=== PATIENT | male | born 1995 | race Caucasian/White ===

== ENCOUNTER 2016-04-26 09:22 | Emergency (ER) | payer SELFPAY | END 2016-04-26 11:12 | disposition home or self-care (01) | LOC: D.ER 09:22 | DX: K02.9 Dental caries, unspecified (principal); F17.200 Nicotine dependence, unspecified, uncomplicated ==

== ENCOUNTER 2016-06-12 15:41 | Emergency (ER) | payer MEDICAID ==
[2016-06-12 17:01] LABS: BASOPHILS 0.2 % (0.0-2.0); EOSINOPHILS 0.8 % (0-7); HEMATOCRIT 45.8 % (42.0-54.0); HEMOGLOBIN 15.5 g/dL (13.5-17.5); IMMATURE GRANULOCYTES 0.3 % (0-5); LYMPHOCYTES 13.2 % (15-50); MCHC 33.8 g/dL (31.0-37.0); MCV 88.6 fL (80.0-100.0); MEAN PLATELET VOLUME 10.9 fL (7.4-10.4); MONOCYTES 8.7 % (2-11); NEUTROPHILS 76.8 % (40-80); PLATELET COUNT 209 10x3/uL (130-400); RBC 5.17 10x6/uL (4.20-6.10); RDW 12.8 % (11.5-14.5); WBC 12.2 10x3/uL (4.8-10.8)
== END 2016-06-12 21:43 | disposition left against medical advice (07) ==
LOC: D.ER 15:41
PROVIDERS: Emergency Medicine
DX: R05 Cough (principal)

== ENCOUNTER 2016-10-08 01:46 | Emergency (ER) | payer SELFPAY | END 2016-10-08 02:22 | disposition home or self-care (01) | LOC: D.ER 01:46 | DX: K02.9 Dental caries, unspecified (principal); K08.89 Other specified disorders of teeth and supporting structures; S02.5XXA Fracture of tooth (traumatic), initial encounter for closed fracture; X58.XXXA Exposure to other specified factors, initial encounter; Y93.89 Activity, other specified; Y92.89 Other specified places as the place of occurrence of the external cause; M32.9 Systemic lupus erythematosus, unspecified ==

== ENCOUNTER 2016-10-11 21:55 | Emergency (ER) | payer SELFPAY | END 2016-10-12 00:20 | disposition home or self-care (01) | LOC: D.ER 21:55 | DX: J02.9 Acute pharyngitis, unspecified (principal); Z72.0 Tobacco use ==

== ENCOUNTER 2016-12-07 13:06 | Emergency (ER) | payer SELFPAY | END 2016-12-07 15:00 | disposition home or self-care (01) | LOC: D.ER 13:06 | DX: N61.1 Abscess of the breast and nipple (principal); R59.0 Localized enlarged lymph nodes; F17.200 Nicotine dependence, unspecified, uncomplicated ==

== ENCOUNTER 2016-12-08 15:07 | Emergency (ER) | payer SELFPAY | END 2016-12-08 16:17 | disposition home or self-care (01) | LOC: D.ER 15:07 | DX: N61.1 Abscess of the breast and nipple (principal); M32.9 Systemic lupus erythematosus, unspecified ==

== ENCOUNTER 2019-06-02 18:57 | Emergency (ER) | payer MEDICAID ==
[~2019-06-02] VITALS: Ht 170.2 cm; Wt 77.3 kg
[2019-06-02 19:04] VITALS: BP 142/91; Ht 170.2 cm; Wt 77.3 kg
== END 2019-06-02 20:08 | disposition home or self-care (01) ==
LOC: D.ER 18:57
DX: S61.212A Laceration without foreign body of right middle finger without damage to nail, initial encounter (principal); X58.XXXA Exposure to other specified factors, initial encounter

== ENCOUNTER 2019-07-24 13:29 | Emergency (ER) | payer MEDICAID ==
[2019-07-24 13:37] VITALS: Ht 170.2 cm
[2019-07-24] MEDS ORDERED: NAPROSYN500 MG PO (14:26)
[2019-07-24] MEDS ORDERED: KEFLEX500 MG PO (14:26)
[2019-07-24 15:07] VITALS: BP 124/74
== END 2019-07-24 15:07 | disposition home or self-care (01) ==
LOC: D.ER 13:29
DX: M79.672 Pain in left foot (principal); S99.922A Unspecified injury of left foot, initial encounter; W22.8XXA Striking against or struck by other objects, initial encounter; Y93.9 Activity, unspecified; Y92.9 Unspecified place or not applicable